=== PATIENT | female | born 1970 | race Caucasian/White ===

== ENCOUNTER 2024-06-01 15:21 | Emergency (ER) | payer SELFPAY ==
[~2024-06-01] VITALS: Ht 172.7 cm; Wt 70.0 kg
[2024-06-01 15:29] VITALS: O2SAT 99
[2024-06-01] MEDS ORDERED: KETOROLAC 30MG/ML VIAL IM ONE (15:45)
[2024-06-01] MEDS ORDERED: OXYC-100 MT (16:49)
[2024-06-01] MEDS ORDERED: IBUP-2029 MT (16:51)
[2024-06-01] MEDS: OXYCODONE HCL/ACETAMINOPHEN 5/325MG TABLET PO ONE (17:10)
[2024-06-01 18:02] VITALS: BP 146/70; PULSE 80; RESP 18; TEMP 36.94740; O2SAT 98
== END 2024-06-01 18:12 | disposition home or self-care (01) ==
LOC: ER 15:21
DX: S82.402A Unspecified fracture of shaft of left fibula, initial encounter for closed fracture (principal); W18.30XA Fall on same level, unspecified, initial encounter; Y93.01 Activity, walking, marching and hiking; Y92.89 Other specified places as the place of occurrence of the external cause; Y99.8 Other external cause status
CPT/HCPCS: 73610; 73630; 29515; 99284; J1885; Z7610